=== PATIENT | male | born 1930 | race Caucasian/White ===

== ENCOUNTER 2016-10-31 10:09 | Emergency (ER) | payer MEDICARE, OTHER | END 2016-10-31 12:36 | disposition home or self-care (01) | DX: R07.89 Other chest pain (principal); I45.10 Unspecified right bundle-branch block; Z79.82 Long term (current) use of aspirin ==

== ENCOUNTER 2020-08-07 09:33 | Emergency (ER) | payer MEDICARE ==
[2020-08-07] MEDS ORDERED: SULFAMETH/TRIMETH DS 800/160 MG TABLET PO STA (11:03)
[2020-08-07] MEDS ORDERED: LIDOCAINE 2% URO-JET 5 ML SYRINGE UR STA (11:03)
[2020-08-07 11:48] LABS: BILIRUBIN,URINE NEGATIVE (NEGATIVE); GLUCOSE, URINE (UA) NEGATIVE (NEGATIVE); KETONES,URINE (UA) NEGATIVE (NEGATIVE); LEUKOCYTE ESTERASE, URINE TRACE (NEGATIVE); NITRITE,URINE POSITIVE (NEGATIVE); OCCULT BLOOD,URINE LARGE (NEGATIVE); PH,URINE 5.5 PH (5.0-7.5); PROTEIN,URINE 100 mg/dL (NEGATIVE); UROBILINOGEN,URINE 1 (NORMAL) E.U./dL (NORMAL)
[2020-08-07 11:59] LABS: CLARITY,URINE CLEAR (CLEAR)
[2020-08-07 12:11] LABS: BACTERIA,URINE Few /HPF (None Seen); RBC,URINE TNTC /HPF (0-5); SQUAMOUS EPITHELIAL CELL,UR NONE SEEN (<= Few)
--- NOTE | 2020-08-07 12:37 | ED Physician Documentation ---
PD HPI MALE - Stated complaint Stated Complaint: MALE - Chief complaint Chief Complaint: General - History obtained from History obtained from: Patient, Family - History of Present Illness Timing - onset: Today, Last night Timing - duration: Hours (12) Timing - details: Gradual onset (had onset of dribbling urine and burning feeling with voiding, then with inability to urinate. No noted blood in urine.) Associated symptoms: Dysuria, Unable to urinate. No: Genital sore / lesion, Scrotal swelling PD HPI MALE CONTRIB FACTORS: No: Indwelling catheter (had a catheter after bladder surgery 7th of this month, and it was removed 5 days later. Had been urinating normally since until last evening.) Similar symptoms before: Has not had sx before Recently seen: Surgery (bladder surgery for "tumor" and says the Urologist was just following up on the tumor 3 months from now. So no acute treatment/meds.) Review of Systems Constitutional: denies: Fever, Chills Nose: denies: Rhinorrhea / runny nose, Congestion Throat: denies: Sore throat Respiratory: denies: Cough GI: reports: Abdominal Pain (cramping in bladder area). denies: Nausea, Vomiting : reports: Dysuria, Unable to Void. denies: Discharge Skin: denies: Rash PD PAST MEDICAL HISTORY - Past Medical History Cardiovascular: None Respiratory: None : Other (bladder tumor recent) Derm: Other - Past Surgical History Past Surgical History: Yes - Present Medications Home Medications: Ambulatory Orders Medication Instructions Recorded Confirmed Aspirin 81 mg PO DAILY 10/31/16 10/31/16 Levothyroxine Sodium [Synthroid] 50 mcg PO DAILY 10/31/16 10/31/16 Metoprolol Tartrate 50 mg PO DAILY 10/31/16 10/31/16 Niacin 100 mg PO DAILY 10/31/16 10/31/16 Sulfamethox/Trimeth 800/160 1 each PO BID #14 tablet 08/07/20 [Bactrim Ds 800/160] - Allergies Allergies/Adverse Reactions: Allergies Allergy/AdvReac Type Severity Reaction Status Date / Time ciprofloxacin [From Cipro] Allergy Unknown Verified 08/07/20 09:47 ciprofloxacin HCl * Allergy Unknown Verified 08/07/20 09:47 [From Cipro] - Living Situation Living Situation: reports: With spouse/s.o. Living Arrangement: reports: At home - Social History Does the pt smoke?: No Smoking Status: Never smoker Does the pt drink ETOH?: No Does the pt have substance abuse?: No - Immunizations Immunizations are current?: Yes PD ED PE NORMAL - Vitals Vital signs reviewed: Yes - General General: Alert and oriented X 3, Well developed/nourished, Other (appears uncomfortable with some fullness of bladder. No flank pain. ) - Abdomen Abdomen: Normal bowel sounds, Soft, No organomegaly, Other (moderate bladder fullness suprapubic area. Mild tender. No CVA tenderness. ) - Male Male : Other (normal external genitalia) - Rectal Rectal: Deferred - Back Back: No CVA TTP - Derm Derm: Normal color, Warm and dry Results - Vitals Vitals: Vital Signs - 24 hr 08/07/20 08/07/20 08/07/20 09:43 11:46 12:45 Temperature 36.5 C Heart Rate 84 76 74 Respiratory 16 17 16 Rate Blood Pressure 173/75 H 138/65 H 133/71 H O2 Saturation 99 95 97 08/07/20 12:50 Temperature 36.4 C L Heart Rate Respiratory Rate Blood Pressure O2 Saturation Oxygen O2 Source Room air - Labs Labs: Laboratory Tests 08/07/20 11:35 Urine Color DARK YELLOW Urine Clarity CLEAR Urine pH 5.5 Ur Specific [place] >=1.030 H Urine Protein 100 H Urine Glucose (UA) NEGATIVE Urine Ketones NEGATIVE Urine Occult Blood LARGE H Urine Nitrite POSITIVE H Urine Bilirubin NEGATIVE Urine Urobilinogen 1 (NORMAL) Ur Leukocyte Esterase TRACE H Urine RBC TNTC H Urine WBC 4-5 Ur Squamous Epith Cells NONE SEEN Urine Bacteria Few Ur Microscopic Review INDICATED Urine Culture Comments INDICATED PD MEDICAL DECISION MAKING - ED course Complexity details: re-evaluated patient (urine showing infection, so expect difficulty voiding to last until UTI improving, so will keep the cantu in place 2-3 days. ), considered differential (moderate amount after attempting void (220 ml). Is uncomfortable. Will place cantu.), d/w patient, d/w family () Departure - Departure Disposition: 01 Home, Self Care Clinical Impression: Acute urinary retention UTI (urinary tract infection) Qualifiers: Urinary tract infection type: acute cystitis Hematuria presence: without hematuria Qualified Code(s): N30.00 - Acute cystitis without hematuria Condition: Stable Record reviewed to determine appropriate education?: Yes Instructions: ED Catheter Care Cantu, ED UTI Cystitis Male Follow-Up: Jing Lucero MD [Primary Care Provider] - Krista Askew MD [Provider Admit Priv/Credential] - Prescriptions: Sulfamethox/Trimeth 800/160 [Bactrim Ds 800/160] 1 each PO BID #14 tablet Comments: Stay well-hydrated. Continue usual medications. Keep the catheter in for several days until or have time to treat your bladder infection. Bactrim antibiotic twice daily for a week. Call your urologist and see if they are able to see you early next week for follow-up. Otherwise you could follow-up with your primary care as well. Discharge Date/Time: 08/07/20 13:10
[2020-08-07 12:47] VITALS: BP 133/71
== END 2020-08-07 13:10 | disposition home or self-care (01) ==
LOC: ED 09:33
DX: R33.9 Retention of urine, unspecified (principal); N30.00 Acute cystitis without hematuria; Z79.82 Long term (current) use of aspirin
CPT/HCPCS: 51702; 51798; 81001; 87086; 99283; 99284; A9270; 81003

== ENCOUNTER 2020-08-22 11:49 | Emergency (ER) | payer MEDICARE ==
[2020-08-22] MEDS ORDERED: LIDOCAINE 2% URO-JET 5 ML SYRINGE UR STA (12:15)
[2020-08-22 13:30] LABS: BILIRUBIN,URINE NEGATIVE (NEGATIVE); GLUCOSE, URINE (UA) NEGATIVE (NEGATIVE); KETONES,URINE (UA) NEGATIVE (NEGATIVE); LEUKOCYTE ESTERASE, URINE SMALL (NEGATIVE); NITRITE,URINE NEGATIVE (NEGATIVE); OCCULT BLOOD,URINE MODERATE (NEGATIVE); PH,URINE 5.5 PH (5.0-7.5); PROTEIN,URINE 100 mg/dL (NEGATIVE); UROBILINOGEN,URINE 0.2 (NORMAL) E.U./dL (NORMAL)
[2020-08-22 13:31] LABS: CLARITY,URINE CLEAR (CLEAR)
--- NOTE | 2020-08-22 13:36 | ED Physician Documentation ---
History of Present Illness - Stated complaint Stated Complaint: MALE - Chief complaint Chief Complaint: General - History obtained from History obtained from: Patient - History of Present Illness Timing: How many days ago (2) Pain level max: 5 Pain level now: 4 - Additonal information Additional information: 89-year-old male had a Poon catheter placed about 2 weeks ago. The catheter was removed 4 days ago with urology. He states he cannot pee again. He talked to urology help him to come back to the emergency department for a new catheter. Has lower abdominal pain. Nothing makes it better or worse. No fevers. No chills. No vomiting. Review of Systems Constitutional: denies: Fever, Chills Cardiac: denies: Chest pain / pressure Respiratory: denies: Cough GI: denies: Vomiting, Diarrhea Skin: denies: Rash Musculoskeletal: denies: Neck pain, Back pain PD PAST MEDICAL HISTORY - Past Medical History Cardiovascular: None Respiratory: None : Other (bladder tumor recent) Derm: Other - Past Surgical History Past Surgical History: Yes - Present Medications Home Medications: Ambulatory Orders Medication Instructions Recorded Confirmed Aspirin 81 mg PO DAILY 10/31/16 10/31/16 Levothyroxine Sodium [Synthroid] 50 mcg PO DAILY 10/31/16 10/31/16 Metoprolol Tartrate 50 mg PO DAILY 10/31/16 10/31/16 Niacin 100 mg PO DAILY 10/31/16 10/31/16 Sulfamethox/Trimeth 800/160 1 each PO BID #14 tablet 08/07/20 [Bactrim Ds 800/160] Cephalexin [Keflex] 500 mg PO Q6H #28 capsule 08/22/20 - Allergies Allergies/Adverse Reactions: Allergies Allergy/AdvReac Type Severity Reaction Status Date / Time ciprofloxacin [From Cipro] Allergy Unknown Verified 08/22/20 12:09 ciprofloxacin HCl * Allergy Unknown Verified 08/22/20 12:09 [From Cipro] - Social History Does the pt smoke?: No Smoking Status: Never smoker Does the pt drink ETOH?: No Does the pt have substance abuse?: No - Immunizations Immunizations are current?: Yes PD ED PE NORMAL - Vitals Vital signs reviewed: Yes - General General: Alert and oriented X 3, No acute distress - HEENT HEENT: Moist mucous membranes - Neck Neck: Supple, no meningeal sign - Cardiac Cardiac: RRR - Respiratory Respiratory: No respiratory distress, Clear bilaterally - Abdomen Abdomen: Soft, Non tender, Non distended - Derm Derm: Warm and dry - Neuro Neuro: Alert and oriented X 3 Results - Vitals Vitals: Vital Signs - 24 hr 08/22/20 08/22/20 12:00 14:00 Temperature 36.9 C 36.4 C L Heart Rate 62 62 Respiratory 16 18 Rate Blood Pressure 138/76 H 137/65 H O2 Saturation 97 96 Oxygen O2 Source Room air - Labs Labs: Laboratory Tests 08/22/20 13:17 Urine Color YELLOW Urine Clarity CLEAR Urine pH 5.5 Ur Specific [place] >=1.030 H Urine Protein 100 H Urine Glucose (UA) NEGATIVE Urine Ketones NEGATIVE Urine Occult Blood MODERATE H Urine Nitrite NEGATIVE Urine Bilirubin NEGATIVE Urine Urobilinogen 0.2 (NORMAL) Ur Leukocyte Esterase SMALL H Urine RBC 0-5 Urine WBC >25 H Ur Squamous Epith Cells NONE SEEN Urine Bacteria Rare Ur Microscopic Review INDICATED Urine Culture Comments INDICATED PD MEDICAL DECISION MAKING - ED course Complexity details: reviewed results, re-evaluated patient, considered differ ential, d/w patient ED course: Poon catheter was replaced and bladder drained. Patient feels better. Approximately 500 mL was drained right away. Does appear to have a UTI. Will place him on antibiotics. We will have him follow-up with his doctor for further care. Patient is well-appearing, nontoxic. Afebrile. No evidence of sepsis or pyelonephritis. Patient counseled regarding signs and symptoms for which I believe and urgent re-evaluation would be necessary. Patient with good understanding of and agreement to plan and is comfortable going home at this time This document was made in part using voice recognition software. While efforts are made to proofread this document, sound alike and grammatical errors may occur. Departure - Departure Disposition: 01 Home, Self Care Clinical Impression: Acute urinary retention UTI (urinary tract infection) Qualifiers: Urinary tract infection type: acute cystitis Hematuria presence: without hematuria Qualified Code(s): N30.00 - Acute cystitis without hematuria Condition: Good Instructions: ED UTI Cystitis Male Follow-Up: Jing Lucero MD [Primary Care Provider] - Within 1 week Prescriptions: Cephalexin [Keflex] 500 mg PO Q6H #28 capsule Comments: Take all antibiotics until gone. Return if you worsen. Follow-up with your doctor later this week for catheter removal and voiding trial. Discharge Date/Time: 08/22/20 14:13
[2020-08-22 13:45] LABS: RBC,URINE 0-5 /HPF (0-5); SQUAMOUS EPITHELIAL CELL,UR NONE SEEN (<= Few)
[2020-08-22 13:46] LABS: BACTERIA,URINE Rare /HPF (None Seen)
[2020-08-22 14:00] VITALS: BP 137/65
== END 2020-08-22 14:13 | disposition home or self-care (01) ==
LOC: ED 11:49
DX: R33.9 Retention of urine, unspecified (principal); N30.00 Acute cystitis without hematuria; Z79.82 Long term (current) use of aspirin
CPT/HCPCS: 51702; 81001; 81003; 87086; 99283; 99284